=== PATIENT | male | born 1945 | race Caucasian/White ===

== ENCOUNTER 2018-01-10 18:30 | Emergency (ER) | payer OTHER, MEDICARE, SELFPAY ==
[2018-01-10 18:38] VITALS: BP 133/83; PULSE 75; RESP 20; O2SAT 98
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
[2018-01-10] MEDS: ACETAMINOPHEN 325 MG TABLET 975 MG PO (20:26)
[2018-01-10 21:00] VITALS: BP 159/70; PULSE 80; RESP 17; O2SAT 98
[2018-01-10] MEDS: CYCLOBENZAPRINE 10 MG PREPACK 1 BOTTLE MISC (21:25)
[2018-01-10] MEDS: PRAMIPEXOLE 0.25 MG TABLET PO (21:25)
[2018-01-10] MEDS: TRAMADOL 50 MG PREPACK 1 BOTTLE MISC (21:25)
== END 2018-01-10 21:28 | disposition home or self-care (01) ==
PROVIDERS: Emergency Provider Internal Medicine
DX: S13.4XXA Sprain of ligaments of cervical spine, initial encounter (principal); M16.9 Osteoarthritis of hip, unspecified; M53.9 Dorsopathy, unspecified; R31.29 Other microscopic hematuria; V44.5XXA Car driver injured in collision with heavy transport vehicle or bus in traffic accident, initial encounter
CPT/HCPCS: 72125; 72131; 73502; 81003; 99282; 99284